=== PATIENT | male | born 1945 | race Caucasian/White ===

== ENCOUNTER 2016-05-30 08:55 | Outpatient (CLI) | payer MEDICARE | END 2016-05-30 08:56 | disposition home or self-care (01) | DX: I12.9 Hypertensive chronic kidney disease with stage 1 through stage 4 chronic kidney disease, or unspecified chronic kidney disease (principal); E11.22 Type 2 diabetes mellitus with diabetic chronic kidney disease; N18.9 Chronic kidney disease, unspecified; D63.1 Anemia in chronic kidney disease; E11.65 Type 2 diabetes mellitus with hyperglycemia ==

== ENCOUNTER 2016-06-28 09:56 | Outpatient (CLI) | payer MEDICARE | END 2016-06-28 09:57 | disposition home or self-care (01) | DX: C61 Malignant neoplasm of prostate (principal) ==

== ENCOUNTER 2016-09-18 09:38 | Outpatient (CLI) | payer MEDICARE | END 2016-09-18 09:39 | disposition home or self-care (01) | DX: D63.1 Anemia in chronic kidney disease (principal); E11.65 Type 2 diabetes mellitus with hyperglycemia ==

== ENCOUNTER 2016-09-20 07:37 | Outpatient (CLI) | payer MEDICARE, MEDICAID ==
[2016-09-20 19:39] LABS: ALBUMIN/GLOBULIN RATIO 1.1 (1.0-2.2); BILIRUBIN,TOTAL 0.6 mg/dL (0.2-1.0); CALCIUM 9.4 mg/dL (8.5-10.3); CREATININE 2.3 mg/dL (0.6-1.2); POTASSIUM 5.6 mmol/L (3.5-5.0); TOTAL PROTEIN 7.5 g/dL (6.7-8.2)
[2016-09-20 19:40] LABS: HEMOGLOBIN A1C 1.2 g/dL
== END 2016-09-20 07:38 | disposition home or self-care (01) ==
LOC: LAB.N 07:37
PROVIDERS: ATTEND Family Medicine
DX: E11.21 Type 2 diabetes mellitus with diabetic nephropathy (principal)
CPT/HCPCS: 36415; 80053; 83036

== ENCOUNTER 2016-10-04 15:07 | Outpatient (CLI) | payer MEDICARE, MEDICAID ==
[2016-10-04 19:05] LABS: CALCIUM 9.7 mg/dL (8.5-10.3); CREATININE 1.9 mg/dL (0.6-1.2); POTASSIUM 5.1 mmol/L (3.5-5.0)
== END 2016-10-04 15:08 | disposition home or self-care (01) ==
LOC: LAB.N 15:07
PROVIDERS: ATTEND Family Medicine
DX: E11.21 Type 2 diabetes mellitus with diabetic nephropathy (principal)
CPT/HCPCS: 36415; 80048

== ENCOUNTER 2017-01-05 08:49 | Outpatient (CLI) | payer MEDICARE, MEDICAID ==
[2017-01-05 13:55] LABS: HEMOGLOBIN A1C 0.93 g/dL
[2017-01-05 15:10] LABS: CALCIUM 9.4 mg/dL (8.5-10.3); MAGNESIUM 1.8 mg/dL (1.7-2.8); POTASSIUM 4.7 mmol/L (3.5-5.0)
== END 2017-01-05 08:50 | disposition home or self-care (01) ==
LOC: LAB.N 08:49
PROVIDERS: ATTEND Family Medicine
DX: E87.5 Hyperkalemia (principal); E11.21 Type 2 diabetes mellitus with diabetic nephropathy
CPT/HCPCS: 36415; 80048; 83036; 83735

== ENCOUNTER 2017-04-12 14:51 | Outpatient (CLI) | payer MEDICARE, MEDICAID ==
[2017-04-12 13:58] LABS: CALCIUM 9.2 mg/dL (8.5-10.3); CREATININE 1.8 mg/dL (0.6-1.2); POTASSIUM 5.3 mmol/L (3.5-5.0)
[2017-04-12 14:09] LABS: HEMOGLOBIN A1C 0.92 g/dL
== END 2017-04-12 14:52 | disposition home or self-care (01) ==
LOC: LAB.N 14:51
PROVIDERS: ATTEND Family Medicine
DX: E11.65 Type 2 diabetes mellitus with hyperglycemia (principal); Z79.4 Long term (current) use of insulin; Z79.84 Long term (current) use of oral hypoglycemic drugs
CPT/HCPCS: 36415; 80048; 83036

== ENCOUNTER 2017-07-18 08:00 | Outpatient (CLI) | payer MEDICARE, MEDICAID ==
[2017-07-18 13:07] LABS: HB2 TOTAL 13.7 g/dL; HEMOGLOBIN A1C % 8.8 % (4.6-6.2)
[2017-07-18 13:19] LABS: ALBUMIN 3.7 g/dL (3.2-5.5); ALKALINE PHOSPHATASE 79 IU/L (42-121); ALT ALANINE AMINOTRANSFERASE 20 IU/L (10-60); AST ASPARTATE AMINOTRANSFERASE 21 IU/L (10-42); BILIRUBIN,TOTAL 0.6 mg/dL (0.2-1.0); BUN - BLOOD UREA NITROGEN 28 mg/dL (6-20); CALCIUM 9.4 mg/dL (8.5-10.3); CARBON DIOXIDE - CO2 23 mmol/L (21-32); CHLORIDE 106 mmol/L (101-111); CHOL/HDL RATIO 3.2 (<5.0); CHOLESTEROL 152 mg/dL; CREATININE 1.7 mg/dL (0.6-1.2); GFR - MDRD 40 (>89); GLUCOSE 125 mg/dL (70-100); HDL CHOLESTEROL 48 mg/dL; LDL CHOLESTEROL,CALCULATED 84 mg/dL; LDL/HDL RATIO 1.8 (<3.6); SODIUM 136 mmol/L (135-145); TOTAL PROTEIN 7.4 g/dL (6.7-8.2); VLDL CHOLESTEROL 20 mg/dL
== END 2017-07-18 08:01 | disposition home or self-care (01) ==
LOC: LAB.N 08:00
PROVIDERS: ATTEND Family Medicine
DX: Z51.81 Encounter for therapeutic drug level monitoring (principal); E11.65 Type 2 diabetes mellitus with hyperglycemia; Z79.4 Long term (current) use of insulin
CPT/HCPCS: 36415; 80053; 80061; 83036; 83721

== ENCOUNTER 2017-10-04 08:00 | Outpatient (CLI) | payer MEDICARE, MEDICAID | END 2017-10-04 08:01 | disposition home or self-care (01) | LOC: LAB.N 08:00 | PROVIDERS: ATTEND Urology | DX: C61 Malignant neoplasm of prostate (principal) | CPT/HCPCS: 36415; 84153 ==

== ENCOUNTER 2017-10-26 08:00 | Outpatient (CLI) | payer MEDICARE, MEDICAID ==
[2017-10-26 13:38] LABS: BASOPHILS # (AUTO) 0.1 10^3/uL (0.0-0.1); BASOPHILS % (AUTO) 0.8 %; EOSINOPHILS # (AUTO) 0.3 10^3/uL (0.0-0.7); EOSINOPHILS % (AUTO) 4.3 %; HGB - HEMOGLOBIN 12.6 g/dL (14.0-18.0); LYMPHOCYTES # (AUTO) 1.4 10^3/uL (1.5-3.5); LYMPHOCYTES % (AUTO) 19.8 %; MEAN CORPUSCULAR HEMOGLOBIN 28.3 pg (27.0-31.0); MEAN CORPUSCULAR HGB CONC 32.3 g/dL (32.0-36.0); MEAN CORPUSCULAR VOLUME 87.7 fL (80.0-94.0); MEAN PLATELET VOLUME 8.7 fL (7.4-11.4); MONOCYTES # (AUTO) 0.5 10^3/uL (0.0-1.0); MONOCYTES % (AUTO) 7.3 %; NEUTROPHILS # (AUTO) 4.9 10^3/uL (1.5-6.6); NEUTROPHILS % (AUTO) 67.8 %; PLT - PLATELET COUNT 263 10^3/uL (130-450); RED BLOOD COUNT 4.46 10^6/uL (4.70-6.10); RED CELL DISTRIBUTION WIDTH 14.5 % (12.0-15.0); WHITE BLOOD COUNT 7.2 x10^3/uL (4.8-10.8)
[2017-10-26 14:13] LABS: CALCIUM 9.4 mg/dL (8.5-10.3); CREATININE 2.1 mg/dL (0.6-1.2)
[2017-10-26 14:21] LABS: HB2 TOTAL 13.9 g/dL; HEMOGLOBIN A1C 0.97 g/dL; HEMOGLOBIN A1C % 8.5 % (4.6-6.2)
== END 2017-10-26 23:59 ==
LOC: LAB.N 08:00
PROVIDERS: ATTEND Family Medicine
DX: E11.65 Type 2 diabetes mellitus with hyperglycemia (principal); I12.9 Hypertensive chronic kidney disease with stage 1 through stage 4 chronic kidney disease, or unspecified chronic kidney disease; E11.22 Type 2 diabetes mellitus with diabetic chronic kidney disease; D63.1 Anemia in chronic kidney disease; N18.9 Chronic kidney disease, unspecified
CPT/HCPCS: 36415; 80048; 82728; 83036; 83540; 84466; 85025

== ENCOUNTER 2018-01-28 08:00 | Outpatient (CLI) | payer MEDICARE, MEDICAID ==
[2018-01-28 14:47] LABS: CALCIUM 9.4 mg/dL (8.5-10.3); CREATININE 1.6 mg/dL (0.6-1.2)
[2018-01-28 14:54] LABS: HB2 TOTAL 13.8 g/dL; HEMOGLOBIN A1C 0.97 g/dL; HEMOGLOBIN A1C % 8.6 % (4.6-6.2)
== END 2018-01-28 08:01 | disposition home or self-care (01) ==
LOC: LAB.N 08:00
PROVIDERS: ATTEND Family Medicine
DX: E11.65 Type 2 diabetes mellitus with hyperglycemia (principal); E11.22 Type 2 diabetes mellitus with diabetic chronic kidney disease; N18.9 Chronic kidney disease, unspecified; Z79.4 Long term (current) use of insulin
CPT/HCPCS: 36415; 80048; 83036

== ENCOUNTER 2018-05-20 09:00 | Outpatient (CLI) | payer MEDICARE, MEDICAID ==
[2018-05-20 13:40] LABS: CREATININE 1.9 mg/dL (0.6-1.2)
[2018-05-20 15:22] LABS: HB2 TOTAL 13.5 g/dL; HEMOGLOBIN A1C 0.85 g/dL; HEMOGLOBIN A1C % 7.9 % (4.6-6.2)
== END 2018-05-20 23:59 | disposition home or self-care (01) ==
LOC: LAB.N 09:00
PROVIDERS: ATTEND Physician Assistant Medical
DX: E11.65 Type 2 diabetes mellitus with hyperglycemia (principal); Z79.4 Long term (current) use of insulin; E87.5 Hyperkalemia
CPT/HCPCS: 36415; 80048; 83036

== ENCOUNTER 2018-08-22 08:00 | Outpatient (CLI) | payer MEDICARE, MEDICAID ==
[2018-08-22 12:39] LABS: HB2 TOTAL 14.3 g/dL; HEMOGLOBIN A1C 0.96 g/dL; HEMOGLOBIN A1C % 8.3 % (4.6-6.2)
== END 2018-08-22 23:59 | disposition home or self-care (01) ==
LOC: LAB.N 08:00
PROVIDERS: ATTEND Physician Assistant Medical
DX: E11.21 Type 2 diabetes mellitus with diabetic nephropathy (principal)
CPT/HCPCS: 36415; 83036

== ENCOUNTER 2018-10-17 08:00 | Outpatient (CLI) | payer MEDICARE, MEDICAID | END 2018-10-17 23:59 | disposition home or self-care (01) | LOC: LAB.N 08:00 | PROVIDERS: ATTEND Urology | DX: C61 Malignant neoplasm of prostate (principal) | CPT/HCPCS: 36415; 84153 ==

== ENCOUNTER 2018-11-21 08:33 | Outpatient (CLI) | payer MEDICARE, MEDICAID ==
[2018-11-21 13:55] LABS: HB2 TOTAL 13.7 g/dL; HEMOGLOBIN A1C 1.01 g/dL; HEMOGLOBIN A1C % 8.9 % (4.6-6.2)
== END 2018-11-21 23:59 | disposition home or self-care (01) ==
LOC: LAB.N 08:33
PROVIDERS: ATTEND Physician Assistant Medical
DX: E11.21 Type 2 diabetes mellitus with diabetic nephropathy (principal)
CPT/HCPCS: 36415; 83036

== ENCOUNTER 2019-02-27 05:00 | Outpatient (CLI) | payer MEDICARE, MEDICAID ==
[2019-02-27 13:05] LABS: HB2 TOTAL 13.7 g/dL; HEMOGLOBIN A1C 0.95 g/dL; HEMOGLOBIN A1C % 8.5 % (4.6-6.2)
== END 2019-02-27 23:59 | disposition home or self-care (01) ==
LOC: LAB.N 05:00
PROVIDERS: ATTEND Physician Assistant Medical
DX: Z51.81 Encounter for therapeutic drug level monitoring (principal); Z79.899 Other long term (current) drug therapy; E11.21 Type 2 diabetes mellitus with diabetic nephropathy
CPT/HCPCS: 36415; 83036

== ENCOUNTER 2019-06-20 08:00 | Outpatient (CLI) | payer MEDICARE, MEDICAID, OTHER ==
[2019-06-20 12:16] LABS: BASOPHILS % (AUTO) 0.5 %; EOSINOPHILS # (AUTO) 0.3 10^3/uL (0.0-0.7); EOSINOPHILS % (AUTO) 3.4 %; HGB - HEMOGLOBIN 12.9 g/dL (14.0-18.0); LYMPHOCYTES # (AUTO) 1.8 10^3/uL (1.5-3.5); LYMPHOCYTES % (AUTO) 20.6 %; MEAN CORPUSCULAR HEMOGLOBIN 26.8 pg (27.0-31.0); MEAN CORPUSCULAR VOLUME 86.5 fL (80.0-94.0); MEAN PLATELET VOLUME 10.9 fL (7.4-11.4); MONOCYTES # (AUTO) 0.6 10^3/uL (0.0-1.0); MONOCYTES % (AUTO) 6.5 %; NEUTROPHILS % (AUTO) 68.5 %; PLT - PLATELET COUNT 240 10^3/uL (130-450); RED BLOOD COUNT 4.81 10^6/uL (4.70-6.10); RED CELL DISTRIBUTION WIDTH 14.1 % (12.0-15.0); WHITE BLOOD COUNT 8.8 x10^3/uL (4.8-10.8)
[2019-06-20 12:34] LABS: ALBUMIN 3.3 g/dL (3.2-5.5); ALBUMIN/GLOBULIN RATIO 0.9 (1.0-2.2); ALKALINE PHOSPHATASE 81 IU/L (42-121); ALT ALANINE AMINOTRANSFERASE 23 IU/L (10-60); AST ASPARTATE AMINOTRANSFERASE 16 IU/L (10-42); BILIRUBIN,TOTAL 0.5 mg/dL (0.2-1.0); BUN - BLOOD UREA NITROGEN 30 mg/dL (6-20); CALCIUM 9.1 mg/dL (8.5-10.3); CARBON DIOXIDE - CO2 23 mmol/L (21-32); CHLORIDE 105 mmol/L (101-111); CHOL/HDL RATIO 3.2 (<5.0); CHOLESTEROL 188 mg/dL; CREATININE 1.8 mg/dL (0.6-1.2); GFR - MDRD 37 (>89); GLUCOSE 111 mg/dL (70-100); HDL CHOLESTEROL 59 mg/dL; LDL CHOLESTEROL,CALCULATED 104 mg/dL; LDL/HDL RATIO 1.8 (<3.6); SODIUM 138 mmol/L (135-145); TOTAL PROTEIN 6.9 g/dL (6.7-8.2); VLDL CHOLESTEROL 25 mg/dL
== END 2019-06-20 23:59 | disposition home or self-care (01) ==
LOC: LAB.N 08:00
PROVIDERS: ATTEND Physician Assistant Medical
DX: I10 Essential (primary) hypertension (principal); E11.65 Type 2 diabetes mellitus with hyperglycemia
CPT/HCPCS: 36415; 80053; 80061; 83721; 85025

== ENCOUNTER 2019-06-27 09:32 | Outpatient (CLI) | payer MEDICARE, MEDICAID ==
[2019-06-27 13:31] LABS: HB2 TOTAL 13.3 g/dL; HEMOGLOBIN A1C 1.04 g/dL; HEMOGLOBIN A1C % 9.3 % (4.6-6.2)
== END 2019-06-27 23:59 | disposition home or self-care (01) ==
LOC: LAB.F 09:32
PROVIDERS: ATTEND Physician Assistant Medical
DX: I10 Essential (primary) hypertension (principal); E11.21 Type 2 diabetes mellitus with diabetic nephropathy
CPT/HCPCS: 36415; 83036

== ENCOUNTER 2020-08-19 08:00 | Outpatient (CLI) | payer MEDICARE, MEDICAID ==
[2020-08-19 12:28] LABS: ESTIMATED AVERAGE GLUCOSE 209 mg/dL (70-100); HEMOGLOBIN A1c% 8.9 % (4.27-6.07)
[2020-08-19 12:47] LABS: THYROID STIMULATING HORMONE 3.01 uIU/mL (0.34-5.60)
[2020-08-19 12:49] LABS: ALBUMIN 3.7 g/dL (3.2-5.5); ALBUMIN/GLOBULIN RATIO 1.1 (1.0-2.2); ALKALINE PHOSPHATASE 84 IU/L (42-121); ALT ALANINE AMINOTRANSFERASE 21 IU/L (10-60); AST ASPARTATE AMINOTRANSFERASE 17 IU/L (10-42); BILIRUBIN,TOTAL 0.3 mg/dL (0.2-1.0); BUN - BLOOD UREA NITROGEN 41 mg/dL (6-20); CALCIUM 9.5 mg/dL (8.5-10.3); CARBON DIOXIDE - CO2 19 mmol/L (21-32); CHLORIDE 111 mmol/L (101-111); CHOL/HDL RATIO 2.3 (<5.0); CHOLESTEROL 150 mg/dL; GFR - MDRD 33 (>89); GLUCOSE 147 mg/dL (70-100); HDL CHOLESTEROL 65 mg/dL; LDL CHOLESTEROL,CALCULATED 62 mg/dL; POTASSIUM 5.3 mmol/L (3.5-5.0); SODIUM 139 mmol/L (135-145); TOTAL PROTEIN 7.1 g/dL (6.7-8.2); TRIGLYCERIDES 116 mg/dL; VLDL CHOLESTEROL 23 mg/dL
[2020-08-19 13:12] LABS: BASOPHILS % (AUTO) 0.5 %; EOSINOPHILS # (AUTO) 0.2 10^3/uL (0.0-0.7); EOSINOPHILS % (AUTO) 2.8 %; HCT - HEMATOCRIT 37.4 % (42.0-52.0); HGB - HEMOGLOBIN 11.9 g/dL (14.0-18.0); LYMPHOCYTES # (AUTO) 1.8 10^3/uL (1.5-3.5); LYMPHOCYTES % (AUTO) 22.9 %; MEAN CORPUSCULAR HEMOGLOBIN 27.9 pg (27.0-31.0); MEAN CORPUSCULAR HGB CONC 31.8 g/dL (32.0-36.0); MEAN CORPUSCULAR VOLUME 87.6 fL (80.0-94.0); MEAN PLATELET VOLUME 10.9 fL (7.4-11.4); MONOCYTES # (AUTO) 0.6 10^3/uL (0.0-1.0); MONOCYTES % (AUTO) 8.2 %; NEUTROPHILS # (AUTO) 5.1 10^3/uL (1.5-6.6); NEUTROPHILS % (AUTO) 65.1 %; PLT - PLATELET COUNT 220 10^3/uL (130-450); RED BLOOD COUNT 4.27 10^6/uL (4.70-6.10); WHITE BLOOD COUNT 7.8 x10^3/uL (4.8-10.8)
[2020-08-19 13:44] LABS: MICROALBUM/CREATININE RATIO,UR 2095.7 ug/mg (<30.0)
== END 2020-08-19 23:59 | disposition home or self-care (01) ==
LOC: LAB.WCP 08:00
PROVIDERS: ATTEND Internal Medicine
DX: I12.9 Hypertensive chronic kidney disease with stage 1 through stage 4 chronic kidney disease, or unspecified chronic kidney disease (principal); E11.22 Type 2 diabetes mellitus with diabetic chronic kidney disease; N18.9 Chronic kidney disease, unspecified; E87.5 Hyperkalemia; Z51.81 Encounter for therapeutic drug level monitoring; Z85.46 Personal history of malignant neoplasm of prostate; Z79.4 Long term (current) use of insulin
CPT/HCPCS: 36415; 80053; 80061; 82043; 82570; 83036; 84443; 85025; G0103; 83721; 84153

== ENCOUNTER 2020-10-14 08:00 | Outpatient (CLI) | payer MEDICARE, MEDICAID ==
[2020-10-14 12:10] LABS: CALCIUM 9.3 mg/dL (8.5-10.3); CREATININE 2.1 mg/dL (0.6-1.2); HCT - HEMATOCRIT 39.5 % (42.0-52.0); HGB - HEMOGLOBIN 12.7 g/dL (14.0-18.0); MEAN CORPUSCULAR HEMOGLOBIN 28.4 pg (27.0-31.0); MEAN CORPUSCULAR HGB CONC 32.2 g/dL (32.0-36.0); MEAN CORPUSCULAR VOLUME 88.4 fL (80.0-94.0); POTASSIUM 5.6 mmol/L (3.5-5.0); RED BLOOD COUNT 4.47 10^6/uL (4.70-6.10); RED CELL DISTRIBUTION WIDTH 13.7 % (12.0-15.0); WHITE BLOOD COUNT 7.9 x10^3/uL (4.8-10.8)
[2020-10-14 12:35] LABS: CREATININE,URINE 74.6 mg/dL; PROTEIN/CREATININE RATIO,URINE 2.8 (<=0.2)
== END 2020-10-14 23:59 | disposition home or self-care (01) ==
LOC: LAB.WCP 08:00
PROVIDERS: ATTEND Internal Medicine Nephrology
DX: N05.9 Unspecified nephritic syndrome with unspecified morphologic changes (principal); D70.9 Neutropenia, unspecified; D63.1 Anemia in chronic kidney disease; R80.9 Proteinuria, unspecified
CPT/HCPCS: 36415; 80048; 82570; 84156; 85027

== ENCOUNTER 2020-11-24 08:00 | Outpatient (CLI) | payer MEDICARE, MEDICAID ==
[2020-11-24 12:20] LABS: BASOPHILS # (AUTO) 0.1 10^3/uL (0.0-0.1); BASOPHILS % (AUTO) 0.6 %; EOSINOPHILS # (AUTO) 0.3 10^3/uL (0.0-0.7); EOSINOPHILS % (AUTO) 3.6 %; HCT - HEMATOCRIT 38.4 % (42.0-52.0); HGB - HEMOGLOBIN 12.1 g/dL (14.0-18.0); LYMPHOCYTES # (AUTO) 1.7 10^3/uL (1.5-3.5); LYMPHOCYTES % (AUTO) 21.9 %; MEAN CORPUSCULAR HEMOGLOBIN 27.5 pg (27.0-31.0); MEAN CORPUSCULAR HGB CONC 31.5 g/dL (32.0-36.0); MEAN CORPUSCULAR VOLUME 87.3 fL (80.0-94.0); MEAN PLATELET VOLUME 10.5 fL (7.4-11.4); MONOCYTES # (AUTO) 0.5 10^3/uL (0.0-1.0); NEUTROPHILS # (AUTO) 5.1 10^3/uL (1.5-6.6); NEUTROPHILS % (AUTO) 66.4 %; PLT - PLATELET COUNT 210 10^3/uL (130-450); RED CELL DISTRIBUTION WIDTH 13.5 % (12.0-15.0); WHITE BLOOD COUNT 7.7 x10^3/uL (4.8-10.8)
[2020-11-24 12:50] LABS: THYROID STIMULATING HORMONE 3.62 uIU/mL (0.34-5.60)
[2020-11-24 12:51] LABS: ALBUMIN 3.7 g/dL (3.2-5.5); ALBUMIN/GLOBULIN RATIO 1.1 (1.0-2.2); ALKALINE PHOSPHATASE 81 IU/L (42-121); ALT ALANINE AMINOTRANSFERASE 19 IU/L (10-60); AST ASPARTATE AMINOTRANSFERASE 16 IU/L (10-42); BILIRUBIN,TOTAL 0.6 mg/dL (0.2-1.0); BUN - BLOOD UREA NITROGEN 34 mg/dL (6-20); CALCIUM 9.1 mg/dL (8.5-10.3); CARBON DIOXIDE - CO2 20 mmol/L (21-32); CHLORIDE 107 mmol/L (101-111); CHOLESTEROL 189 mg/dL; GFR - MDRD 33 (>89); GLUCOSE 135 mg/dL (70-100); HDL CHOLESTEROL 64 mg/dL; LDL CHOLESTEROL,CALCULATED 98 mg/dL; LDL/HDL RATIO 1.5 (<3.6); POTASSIUM 4.6 mmol/L (3.5-5.0); SODIUM 137 mmol/L (135-145); TRIGLYCERIDES 134 mg/dL; VLDL CHOLESTEROL 27 mg/dL
[2020-11-24 13:27] LABS: CREATININE,URINE 84.2 mg/dL; MICROALBUM/CREATININE RATIO,UR 2794.5 ug/mg (<30.0); MICROALBUMIN,URINE 235.3 mg/dL (0-300.0)
[2020-11-24 14:13] LABS: ESTIMATED AVERAGE GLUCOSE 206 mg/dL (70-100); HEMOGLOBIN A1c% 8.8 % (4.27-6.07)
== END 2020-11-24 23:59 | disposition home or self-care (01) ==
LOC: LAB.WCP 08:00
PROVIDERS: ATTEND Family Medicine
DX: E78.5 Hyperlipidemia, unspecified (principal); E11.29 Type 2 diabetes mellitus with other diabetic kidney complication; D63.1 Anemia in chronic kidney disease
CPT/HCPCS: 36415; 80053; 80061; 82043; 82570; 83036; 83721; 84443; 85025

== ENCOUNTER 2021-02-24 08:52 | Outpatient (CLI) | payer MEDICARE, MEDICAID ==
[2021-02-24 12:50] LABS: CALCIUM 9.1 mg/dL (8.5-10.3); POTASSIUM 4.7 mmol/L (3.5-5.0)
[2021-02-24 13:03] LABS: ESTIMATED AVERAGE GLUCOSE 217 mg/dL (70-100); HEMOGLOBIN A1c% 9.2 % (4.27-6.07)
[2021-02-24 13:48] LABS: MICROALBUM/CREATININE RATIO,UR 1386.8 ug/mg (<30.0); MICROALBUMIN,URINE 94.3 mg/dL (0-300.0)
== END 2021-02-24 23:59 | disposition home or self-care (01) ==
LOC: LAB.WCP 08:52
PROVIDERS: ATTEND Internal Medicine
DX: E11.29 Type 2 diabetes mellitus with other diabetic kidney complication (principal)
CPT/HCPCS: 36415; 80048; 82043; 82570; 83036

== ENCOUNTER 2021-05-26 08:00 | Outpatient (CLI) | payer MEDICARE, MEDICAID ==
[2021-05-26 12:41] LABS: BUN - BLOOD UREA NITROGEN 36 mg/dL (6-20); CALCIUM 8.9 mg/dL (8.5-10.3); CARBON DIOXIDE - CO2 21 mmol/L (21-32); CHLORIDE 105 mmol/L (101-111); CHOL/HDL RATIO 2.8 (<5.0); CHOLESTEROL 181 mg/dL; CREATININE 2.4 mg/dL (0.6-1.2); GFR - MDRD 26 (>89); GLUCOSE 226 mg/dL (70-100); HDL CHOLESTEROL 64 mg/dL; LDL CHOLESTEROL,CALCULATED 98 mg/dL; LDL/HDL RATIO 1.5 (<3.6); POTASSIUM 5.5 mmol/L (3.5-5.0); SODIUM 133 mmol/L (135-145); TRIGLYCERIDES 95 mg/dL; VLDL CHOLESTEROL 19 mg/dL
[2021-05-26 18:50] LABS: ESTIMATED AVERAGE GLUCOSE 217 mg/dL (70-100); HEMOGLOBIN A1c% 9.2 % (4.27-6.07)
== END 2021-05-26 23:59 | disposition home or self-care (01) ==
LOC: LAB.WCP 08:00
PROVIDERS: ATTEND Internal Medicine
DX: E11.29 Type 2 diabetes mellitus with other diabetic kidney complication (principal)
CPT/HCPCS: 36415; 80048; 80061; 83036; 83721

== ENCOUNTER 2021-06-16 09:21 | Outpatient (CLI) | payer MEDICARE, MEDICAID ==
[2021-06-16 12:48] LABS: CALCIUM 9.2 mg/dL (8.5-10.3); CREATININE 2.2 mg/dL (0.6-1.2); POTASSIUM 4.5 mmol/L (3.5-5.0)
== END 2021-06-16 09:22 | disposition home or self-care (01) ==
LOC: LAB.N 09:21
PROVIDERS: ATTEND Internal Medicine Nephrology
DX: N05.9 Unspecified nephritic syndrome with unspecified morphologic changes (principal)
CPT/HCPCS: 36415; 80048

== ENCOUNTER 2021-06-21 15:17 | Outpatient (CLI) | payer MEDICARE, MEDICAID ==
[2021-06-21 16:38] LABS: CREATININE,URINE 162.4 mg/dL; PROTEIN/CREATININE RATIO,URINE 3.4 (<=0.2)
== END 2021-06-21 15:18 | disposition home or self-care (01) ==
LOC: LAB 15:17
PROVIDERS: ATTEND Internal Medicine Nephrology
DX: R80.9 Proteinuria, unspecified (principal)
CPT/HCPCS: 82570; 84156

== ENCOUNTER 2021-07-15 09:02 | Outpatient (CLI) | payer MEDICARE, MEDICAID | END 2021-07-15 09:03 | disposition critical access hospital (66) | LOC: EMS 09:02 | DX: S99.821A Other specified injuries of right foot, initial encounter (principal); X58.XXXA Exposure to other specified factors, initial encounter; Y92.002 Bathroom of unspecified non-institutional (private) residence as the place of occurrence of the external cause | CPT/HCPCS: A0425; A0429 ==

== ENCOUNTER 2021-07-15 09:22 | Emergency (ER) | payer MEDICARE, MEDICAID ==
[2021-07-15] MEDS ORDERED: BACITRACIN ZINC OINT 1 PACKET TOP STA (09:31)
--- NOTE | 2021-07-15 09:34 | ED Physician Documentation ---
PD HPI LOWER EXT INJURY - Stated complaint Stated Complaint: TOE NAIL BLEEDING - Chief complaint Chief Complaint: Ext Problem - History obtained from History obtained from: Patient - History of Present Illness PD HPI LOW EXT INJURY LOCATION: Right, Toe (2nd) Type of injury: Other (pulled the oncomycotic nail off) Where injury occurred: Home Timing - onset: Enter time (629), Today Timing - duration: Hours Timing - details: Abrupt onset, Now resolved Improved by: Dressing (and pressure) Worsened by: Moving Associated symptoms: Numbness (similar to always), Tingling. No: Weakness Similar symptoms before: No diagnosis Recently seen: Not recently seen - Additional information Additional information: 75-year-old male was in the shower this morning when he bent over and went to wash off his toe the nail on the second toe came off completely. He had bleeding associated with this and over a 3-hour period of time he was unable to control bleeding. He eventually called the ambulance medics brought the patient to the emergency department with a blood sugar of 347. He states that he is recently snacked. He is on insulin. He has now controlled the bleeding he is not having much in the way of pain as he does have peripheral neuropathy related to his diabetes and he is wondering about treatment of the onychomycosis. Review of Systems Constitutional: denies: Fever Eyes: denies: Decreased vision Ears: denies: Ear pain Nose: denies: Congestion Throat: denies: Sore throat Respiratory: denies: Cough GI: denies: Vomiting, Diarrhea : denies: Dysuria Musculoskeletal: denies: Neck pain, Back pain Neurologic: denies: Generalized weakness, Focal weakness, Numbness PD PAST MEDICAL HISTORY - Past Medical History Cardiovascular: Hypertension, High cholesterol Endocrine/Autoimmune: Type 2 diabetes : Renal insuffiency HEENT: Chronic vision loss, Glaucoma - Past Surgical History General: Cholecystectomy - Present Medications Home Medications: Ambulatory Orders Medication Instructions Recorded Confirmed Aspirin [Children's Aspirin] 81 mg PO DAILY 03/23/14 05/17/15 Cholecalciferol (Vitamin D3) 10,000 unit PO DAILY 03/23/14 05/17/15 [Vitamin D3] Ferrous Gluconate 325 mg PO BID 03/23/14 05/17/15 Insulin Aspart [Novolog] 18 units SQ DAILY 03/23/14 05/17/15 Insulin Glargine [Lantus Solostar] 55 unit SQ QPM 03/23/14 05/17/15 Lovastatin 10 mg PO DAILY 03/23/14 05/17/15 amLODIPine [Norvasc] 10 mg PO DAILY 03/23/14 05/17/15 lisinopriL [Lisinopril] 10 mg PO BID 03/23/14 05/17/15 - Allergies Allergies/Adverse Reactions: Allergies Allergy/AdvReac Type Severity Reaction Status Date / Time No Known Drug Allergies Allergy Verified 07/15/21 09:31 - Social History Smoking Status: Former smoker PD ED PE NORMAL - Vitals Vital signs reviewed: Yes (Tachycardic and hypertensive) - General General: Alert and oriented X 3, No acute distress, Well developed/nourished - HEENT HEENT: Atraumatic - Respiratory Respiratory: No respiratory distress - Derm Derm: Normal color, Warm and dry, No rash - Extremities Extremities: No deformity, No edema, Other (There are onychomycotic nails on the right foot the second toe nail is missing and the nail bed appears uninjured. 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 He was unable to control the bleeding over a 3- hour period of time and called the medics. Bleeding is now controlled the patient otherwise has no specific symptoms. I have referred the patient back to his primary care doctor for consideration of treatment of onychomycosis. Departure - Departure Disposition: 01 Home, Self Care Clinical Impression: Avulsion of toenail of right foot Condition: Stable Instructions: ED Avulsion Nail Complete, ED Nail Infec Fungal Follow-Up: Cirilo Olson MD [Provider Admit Priv/Credential] - Comments: Alec, today it looks like you have avulsed the nail of the second toe on the right foot. This will take about 4 months to grow back in place. If this has more bleeding, apply direct pressure to the nail itself for about 10 minutes. It does look like you have onychomycosis or fungal infection in the nails of your feet. There is treatment available for this. Follow-up with your primary care doctor regarding potential treatment.
[2021-07-15 10:42] VITALS: BP 157/80
== END 2021-07-15 10:50 | disposition home or self-care (01) ==
LOC: EDUNIT# → ED 09:22
DX: S91.204A Unspecified open wound of right lesser toe(s) with damage to nail, initial encounter (principal); X58.XXXA Exposure to other specified factors, initial encounter; E11.65 Type 2 diabetes mellitus with hyperglycemia; Z79.4 Long term (current) use of insulin; I10 Essential (primary) hypertension
CPT/HCPCS: 99282; 99283; A9270

== ENCOUNTER 2021-09-11 20:38 | Outpatient (CLI) | payer MEDICARE, MEDICAID | END 2021-09-11 20:39 | disposition critical access hospital (66) | LOC: EMS 20:38 | DX: M79.672 Pain in left foot (principal) | CPT/HCPCS: A0425; A0429 ==

== ENCOUNTER 2021-09-11 21:32 | Emergency (ER) | payer MEDICARE, MEDICAID ==
--- NOTE | 2021-09-11 21:32 | ED Physician Documentation ---
PD HPI SKIN - Stated complaint Stated Complaint: DM/L FOOT INJ - History obtained from History obtained from: Patient, EMS - History of Present Illness Timing - onset: How many months ago (1) Timing - details: Gradual onset Pain level now: 3 Location: LLE Quality / character: Painful Associated symptoms: No: Fever Similar symptoms before: Has not had sx before Recently seen: Not recently seen - Additional information Additional information: BIBA. patient is diabetic, as well as legally blind. He has had a callus on lateral plantar aspect of left foot x 1 month and has been picking at it (per EMS). Today the lesions rapidly became sore. As he cannot adequately visualize the area due to visual deficit, he asked a friend to look at the area and said friend advised patient to come to ED to be evaluate. Patient says he has nearly no sensation of his feet due to peripheral neuropathy. He has not had diabetic foot infections in the past. FSBS 210 by EMS. Review of Systems Constitutional: denies: Fever Skin: reports: Lesions Musculoskeletal: reports: Extremity pain, Pain with weight bearing PD PAST MEDICAL HISTORY - Past Medical History Past Medical History: Yes Cardiovascular: Hypertension, High cholesterol Endocrine/Autoimmune: Type 1 diabetes - Present Medications Home Medications: Ambulatory Orders Medication Instructions Recorded Confirmed Aspirin [Children's Aspirin] 81 mg PO DAILY 03/23/14 09/11/21 Cholecalciferol (Vitamin D3) 10,000 unit PO DAILY 03/23/14 09/11/21 [Vitamin D3] Ferrous Gluconate 325 mg PO BID 03/23/14 09/11/21 Insulin Aspart [Novolog] 18 units SQ DAILY 03/23/14 09/11/21 Insulin Glargine [Lantus Solostar] 55 unit SQ QPM 03/23/14 09/11/21 Lovastatin 10 mg PO DAILY 03/23/14 09/11/21 amLODIPine [Norvasc] 10 mg PO DAILY 03/23/14 09/11/21 lisinopriL [Lisinopril] 10 mg PO BID 03/23/14 09/11/21 clindamycin HCL [Clindamycin HCl] 300 mg PO QID #27 cap 09/11/21 - Allergies Allergies/Adverse Reactions: Allergies Allergy/AdvReac Type Severity Reaction Status Date / Time No Known Drug Allergies Allergy Verified 09/11/21 21:36 PD ED PE NORMAL - Vitals Vital signs reviewed: Yes - General General: Alert and oriented X 3, No acute distress, Well developed/nourished PD ED PE EXPANDED - Extremities Feet visual: 1 - swelling (hypertrophic skin (callus) noted with 2-3mm central clearing without discharge, tenderness, or fluctuance. No erythea) Results - Vitals Vitals: Oxygen O2 Source Room air PD MEDICAL DECISION MAKING - ED course Complexity details: considered differential, d/w patient ED course: Diabetic gentlemen presents with one month of left foot callus that became tender/painful since earlier today. Due to severe visual impairment, he doesnt have the benefit of being able to inspect such lesions and thus had someone else look at it and was told he should get it looked at tonight in the ED. He has not had any diabetic foot infections in the past. The lesion is a well-marginated area of hypertrophic (callused) skin) on the plantar surface of his left foot, lateral aspect in area of 4th and 5th metatarsal heads. there is no discharge nor fluctuance. There is minimal TTP. There is no erythema. I note a 2-3mm punctate opening centrally which he says says is due to picking at it. There is no bony tenderness. Does not appear acutely infected, but high risk of infection given the scenario of diabetic peripheral neuropathy (minimal/no sensation in feet) , active lesion with break in skin barrier on left foot, and inability to reliably and regularly visually inspect the area for signs of infection due to severe visual impairment. Thus, weighing risks/benefits, he is started on PO clindamycin to help minimize infection risk until he can follow up with his PMD or service specialist Departure - Departure Disposition: 01 Home, Self Care Clinical Impression: Diabetic foot ulcer Condition: Good Instructions: Diabetic Foot Ulcer Dc, ED Foot Care Diabetic Follow-Up: Cirilo Olson MD [Primary Care Provider] - Prescriptions: clindamycin HCL [Clindamycin HCl] 300 mg PO QID #27 cap Comments: A prescription for an antibiotic (clindamycin) has been electronically submitted to [facility] in [place]. You can take a probiotic with this; these are available over the counter such as Culturelle. Discharge Date/Time: 09/11/21 22:15
[2021-09-11] MEDS ORDERED: CLINDAMYCIN 150 MG CAPSULE PO STA (21:57)
[2021-09-11 22:14] VITALS: BP 183/79
== END 2021-09-11 22:15 | disposition home or self-care (01) ==
LOC: EDUNIT# → ED 21:32
DX: E10.621 Type 1 diabetes mellitus with foot ulcer (principal); Z79.4 Long term (current) use of insulin
CPT/HCPCS: 99283; A9270

== ENCOUNTER 2021-09-23 08:49 | Outpatient (CLI) | payer MEDICARE, MEDICAID ==
[2021-09-23 12:24] LABS: BASOPHILS # (AUTO) 0.1 10^3/uL (0.0-0.1); BASOPHILS % (AUTO) 0.8 %; EOSINOPHILS # (AUTO) 0.3 10^3/uL (0.0-0.7); EOSINOPHILS % (AUTO) 4.1 %; HGB - HEMOGLOBIN 12.6 g/dL (14.0-18.0); LYMPHOCYTES # (AUTO) 1.4 10^3/uL (1.5-3.5); LYMPHOCYTES % (AUTO) 21.5 %; MEAN CORPUSCULAR HEMOGLOBIN 27.9 pg (27.0-31.0); MEAN CORPUSCULAR HGB CONC 31.5 g/dL (32.0-36.0); MEAN CORPUSCULAR VOLUME 88.7 fL (80.0-94.0); MEAN PLATELET VOLUME 10.8 fL (7.4-11.4); MONOCYTES # (AUTO) 0.5 10^3/uL (0.0-1.0); MONOCYTES % (AUTO) 8.2 %; NEUTROPHILS # (AUTO) 4.1 10^3/uL (1.5-6.6); NEUTROPHILS % (AUTO) 64.9 %; PLT - PLATELET COUNT 241 10^3/uL (130-450); RED BLOOD COUNT 4.51 10^6/uL (4.70-6.10); RED CELL DISTRIBUTION WIDTH 14.2 % (12.0-15.0); WHITE BLOOD COUNT 6.3 x10^3/uL (4.8-10.8)
[2021-09-23 13:14] LABS: ALBUMIN 3.4 g/dL (3.2-5.5); ALBUMIN/GLOBULIN RATIO 0.9 (1.0-2.2); ALKALINE PHOSPHATASE 93 IU/L (42-121); ALT ALANINE AMINOTRANSFERASE 18 IU/L (10-60); AST ASPARTATE AMINOTRANSFERASE 17 IU/L (10-42); BILIRUBIN,TOTAL 0.6 mg/dL (0.2-1.0); BUN - BLOOD UREA NITROGEN 39 mg/dL (6-20); CALCIUM 8.9 mg/dL (8.5-10.3); CARBON DIOXIDE - CO2 22 mmol/L (21-32); CHLORIDE 104 mmol/L (101-111); CHOL/HDL RATIO 2.9 (<5.0); CHOLESTEROL 179 mg/dL; CREATININE 2.6 mg/dL (0.6-1.2); GFR - MDRD 24 (>89); GLUCOSE 161 mg/dL (70-100); HDL CHOLESTEROL 62 mg/dL; LDL CHOLESTEROL,CALCULATED 95 mg/dL; LDL/HDL RATIO 1.5 (<3.6); POTASSIUM 4.6 mmol/L (3.5-5.0); SODIUM 135 mmol/L (135-145); TRIGLYCERIDES 111 mg/dL; VLDL CHOLESTEROL 22 mg/dL
[2021-09-23 13:17] LABS: ESTIMATED AVERAGE GLUCOSE 194 mg/dL (70-100); HEMOGLOBIN A1c% 8.4 % (4.27-6.07)
== END 2021-09-23 08:50 | disposition home or self-care (01) ==
LOC: LAB.N 08:49
PROVIDERS: ATTEND Internal Medicine
DX: E11.29 Type 2 diabetes mellitus with other diabetic kidney complication (principal); D63.1 Anemia in chronic kidney disease; Z85.46 Personal history of malignant neoplasm of prostate; E78.5 Hyperlipidemia, unspecified
CPT/HCPCS: 36415; 80053; 80061; 83036; 83721; 84153; 85025

== ENCOUNTER → 2021-10-31 | Outpatient (CLI) | payer MEDICARE, MEDICAID | END | disposition short-term general hospital (02) | LOC: EMS 13:55 | DX: M79.89 Other specified soft tissue disorders (principal); R23.8 Other skin changes; S91.105A Unspecified open wound of left lesser toe(s) without damage to nail, initial encounter; X58.XXXA Exposure to other specified factors, initial encounter | CPT/HCPCS: A0425; A0427; A0888 ==